=== PATIENT | female | born 1945 | race Asian ===

== ENCOUNTER 2018-10-15 01:01 | Inpatient (IN) | payer MEDICARE ==
[~2018-10-15] VITALS: Ht 160 cm; Wt 42.8 kg
[2018-10-15] MEDS ORDERED: ASPIRIN 81 MG TABLET CHEW ONE (01:25)
[2018-10-15] MEDS ORDERED: ASPIRIN 81 MG TABLET CHEW PO ONE (01:30)
[2018-10-15] MEDS ORDERED: DILTIAZEM 5 MG/ML, 5ML IV ONE (01:30)
[2018-10-15] MEDS ORDERED: PLEASE ENTER ALLERGIES MC SCH (01:30)
--- NOTE | 2018-10-15 01:41 | NUR ---
pt reports DIZZY PALPITATIONS N/V x 1 hour
[2018-10-15 01:45] LABS: BASOPHILS # (AUTO) 0.04 x10^3/uL (0-0.1); BASOPHILS % (AUTO) 0 % (0-1); EOSINOPHILS # (AUTO) 0.06 x10^3/uL (0-0.4); EOSINOPHILS % (AUTO) 0 % (1-7); LYMPHOCYTES # (AUTO) 1.98 x10^3/uL (1-3.4); LYMPHOCYTES % (AUTO) 13 % (22-44); MD NO; MEAN CORPUSCULAR HEMOGLOBIN 32.3 pg (27.0-34.8); MEAN CORPUSCULAR HGB CONC 33.5 g/dL (32.4-35.8); MEAN CORPUSCULAR VOLUME 96.2 fL (80-100); MEAN PLATELET VOLUME 7.7 fL (7.4-10.4); MONOCYTES # (AUTO) 0.85 x10^3/uL (0.2-0.8); MONOCYTES % (AUTO) 6 % (2-9); NEUTROPHILS # (AUTO) 12.54 x10^3/uL (1.8-6.8); NEUTROPHILS % (AUTO) 81 % (42-75); PLATELET COUNT 306 x10^3/uL (130-400); RED BLOOD COUNT 4.71 x10^6/uL (3.82-5.3); RED CELL DISTRIBUTION WIDTH 15.4 % (9.6-15.2)
[2018-10-15 01:54] LABS: INTERNATIONAL NORMALIZED RATIO 0.97 (0.93-1.1); PROTHROMBIN TIME 10.3 Seconds (9.6-11.5)
[2018-10-15 01:59] LABS: ALBUMIN 3.9 g/dL (3.4-5.0); ANION GAP 9 mmol/L (5-15); CALCIUM 9.1 mg/dL (8.5-10.1); CHLORIDE 109 mmol/L (98-107)
[2018-10-15 02:06] LABS: ALANINE AMINOTRANSFERASE 26 U/L (12-78); ALKALINE PHOSPHATASE 50 U/L (45-117); BILIRUBIN,TOTAL 0.5 mg/dL (0.2-1.0); CREATININE 1.05 mg/dL (0.55-1.02); TOTAL PROTEIN 6.7 g/dL (6.4-8.2); TROPONIN I < 0.015 ng/mL (0.000-0.045)
--- NOTE | 2018-10-15 02:15 | NUR ---
PT. C/O "MY HEART FEELS LIKE IT'S BOUNCING AROUND IN THERE". PT. DENIES CP, SOB. PT. C/O NAUSEA; WILL MEDICATE WITH ZOFRAN PER DR. LINDSAY. DR. LINDSAY AT TO DISCUSS POC WITH PT. PLAN FOR ADMIT WITH IRAIS JUNIOR. PT. IS ON ALL MONITORS. CALL LIGHT IN REACH. ALL SAFEYT MEASURES OBSERVED. Addendum: 10/15/18 at 0217 by MARICRUZ BREAK RN:
[2018-10-15] MEDS ORDERED: DILTIAZEM 125 MG in SODIUM CHLORIDE 0.9% 100 ML IV PRN (02:30)
[2018-10-15] MEDS ORDERED: ONDANSETRON 2MG/ML, 2ML IV ONE (02:30)
[2018-10-15] MEDS ORDERED: ALPR0.5T PO ×2 (02:44→12:49)
[2018-10-15] MEDS ORDERED: LEVO200V10 PO (02:45)
[2018-10-15] MEDS ORDERED: SIMV20OR PO (02:46)
[2018-10-15] MEDS ORDERED: SIMV10TA PO (02:46)
[2018-10-15] MEDS ORDERED: RISE5TAB PO (02:47)
--- NOTE | 2018-10-15 02:47 | NUR ---
AWAITING ADMIT AT THIS TIME
--- NOTE | 2018-10-15 03:45 | NUR ---
REPORT TO [facility]AL[facility] PT TO FLOOR WITH TECHS ON MOMITOR
[2018-10-15 03:58] VITALS: BP 97/59
[2018-10-15] MEDS ORDERED: BUDE9TAB2 PO (04:20)
[2018-10-15] MEDS ORDERED: FLUT1DIS3 INH (04:20)
[2018-10-15] MEDS ORDERED: DILTIAZEM 125 MG in SODIUM CHLORIDE 0.9% 100 ML IV SCH (05:00)
[2018-10-15] MEDS ORDERED: SODIUM CHLORIDE 0.9% 1,000 ML IV SCH (05:05)
[2018-10-15] MEDS ORDERED: ONDANSETRON 2MG/ML, 2ML IVPush PRN (05:30)
[2018-10-15] MEDS ORDERED: POTASSIUM CHLORIDE 20 MEQ TAB.ER.PRT PO ONE (05:30)
[2018-10-15] MEDS ORDERED: ONDANSETRON ODT 4 MG PO PRN (05:30)
[2018-10-15] MEDS ORDERED: BISACODYL 10 MG SUPP PR PRN (05:30)
[2018-10-15] MEDS ORDERED: ACTONEL MC SCH (05:30)
[2018-10-15] MEDS ORDERED: PROMETHAZINE 25 MG/ML, 1ML IM PRN (05:30)
[2018-10-15] MEDS ORDERED: LABETALOL 5MG/ML, 20ML IVPush PRN (05:30)
[2018-10-15] MEDS ORDERED: ACETAMINOPHEN 325 MG TABLET PO PRN (05:30)
[2018-10-15] MEDS ORDERED: morphine SULFATE 10 MG/ML, 1ML IVPush PRN (05:30)
[2018-10-15] MEDS ORDERED: POLYETHYLENE GLYCOL 17 GM PACKET PO PRN (05:30)
[2018-10-15] MEDS ORDERED: OXYcodone IR 5MG TABLET PO PRN (05:30)
[2018-10-15] MEDS ORDERED: RISEDRONATE SODIUM 5 MG PO SCH (05:30)
[2018-10-15] MEDS ORDERED: DOCUSATE 100 MG CAPSULE PO PRN (05:30)
[2018-10-15] MEDS ORDERED: hydrALAzine 20 MG/ML, 1ML IVPush PRN (05:30)
[2018-10-15] MEDS ORDERED: ALBUTEROL SULFATE 2.5 MG/3 ML NPPB SCH (06:00)
[2018-10-15] MEDS ORDERED: LEVOTHYROXINE 88 MCG TABLET PO SCH (06:00)
[2018-10-15] MEDS: NICOTINE 7 MG/24 HR PATCH.TD24 TD SCH (06:14)
[2018-10-15] MEDS: ASPIRIN 325 MG TABLET EC PO SCH (06:18)
[2018-10-15 07:06] VITALS: BP 103/67
[2018-10-15] MEDS: ENOXAPARIN 40 MG/0.4 ML SQ SCH (08:00)
[2018-10-15] MEDS: ALBUTEROL SULFATE 2.5 MG/3 ML NPPB SCH ×3 (08:51→21:30)
[2018-10-15] MEDS: BUDESONIDE 0.5 MG/2 ML INHA NPPB SCH ×2 (08:52→21:30)
[2018-10-15] MEDS ORDERED: TEMPLATE NON-FORMULARY MED. (Fluticasone/Salmeterol** (Advair 250-50 Diskus**) 1 PUFF) INH SCH (09:00)
[2018-10-15 12:34] VITALS: BP 109/69
[2018-10-15] MEDS ORDERED: CHOL4PAC2 PO (12:49)
[2018-10-15] MEDS ORDERED: LEVO25TA4 PO (12:49)
[2018-10-15] MEDS ORDERED: SIMV40TA3 PO (12:49)
[2018-10-15] MEDS ORDERED: SERT50TA28 PO (12:49)
[2018-10-15] MEDS ORDERED: GABA300C10 PO (12:49)
[2018-10-15] MEDS ORDERED: ALEN70TA3 PO (12:49)
[2018-10-15] MEDS: DILTIAZEM 30 MG TABLET PO SCH ×2 (13:28→20:07)
[2018-10-15] MEDS ORDERED: RISE150T3 PO (13:31)
[2018-10-15] MEDS: GABAPENTIN 100 MG CAPSULE PO SCH ×2 (15:00→23:32)
[2018-10-15 15:25] LABS: CULTURE INDICATED? YES; MICROSCOPIC INDICATED
[2018-10-15 16:14] VITALS: BP 98/43
[2018-10-15 19:02] VITALS: BP 119/76
[2018-10-15] MEDS: CHOLESTYRAMINE LIGHT 4GM PACKET PO SCH (20:07)
[2018-10-15] MEDS ORDERED: SIMVASTATIN 40 MG TABLET PO SCH (21:00)
[2018-10-15] MEDS ORDERED: SIMVASTATIN 10 MG TABLET PO SCH (21:00)
[2018-10-16 00:49] VITALS: BP 97/71
[2018-10-16] MEDS: DILTIAZEM 30 MG TABLET PO SCH ×2 (02:32→10:31)
[2018-10-16 02:33] VITALS: BP 112/67
[2018-10-16] MEDS: ALBUTEROL SULFATE 2.5 MG/3 ML NPPB SCH ×2 (02:58→07:25)
[2018-10-16 05:15] LABS: BASOPHILS # (AUTO) 0.05 x10^3/uL (0-0.1); BASOPHILS % (AUTO) 1 % (0-1); EOSINOPHILS # (AUTO) 0.19 x10^3/uL (0-0.4); EOSINOPHILS % (AUTO) 2 % (1-7); LYMPHOCYTES # (AUTO) 2.65 x10^3/uL (1-3.4); LYMPHOCYTES % (AUTO) 31 % (22-44); MD NO; MEAN CORPUSCULAR HEMOGLOBIN 32.6 pg (27.0-34.8); MEAN CORPUSCULAR HGB CONC 33.7 g/dL (32.4-35.8); MEAN CORPUSCULAR VOLUME 96.8 fL (80-100); MEAN PLATELET VOLUME 7.4 fL (7.4-10.4); MONOCYTES # (AUTO) 0.73 x10^3/uL (0.2-0.8); MONOCYTES % (AUTO) 9 % (2-9); NEUTROPHILS # (AUTO) 4.82 x10^3/uL (1.8-6.8); NEUTROPHILS % (AUTO) 57 % (42-75); PLATELET COUNT 269 x10^3/uL (130-400); RED CELL DISTRIBUTION WIDTH 15.5 % (9.6-15.2)
[2018-10-16 05:28] LABS: CHLORIDE 113 mmol/L (98-107)
[2018-10-16 05:48] LABS: ALANINE AMINOTRANSFERASE 21 U/L (12-78); ALBUMIN 3.3 g/dL (3.4-5.0); ALKALINE PHOSPHATASE 44 U/L (45-117); ANION GAP 7 mmol/L (5-15); BILIRUBIN,TOTAL 0.3 mg/dL (0.2-1.0); CALCIUM 8.9 mg/dL (8.5-10.1); CHOL/HDL RATIO 2.4; CHOLESTEROL, TOTAL 207 mg/dL (140-239); CREATININE 0.63 mg/dL (0.55-1.02); HDL CHOL % 43 % (28-40); HDL CHOLESTEROL (DIRECT) 88 mg/dL (40-60); LDL CHOLESTEROL,CALCULATED 96 mg/dL (54-169); LDL/HDL RATIO 1.1 (0.5-3.0); TOTAL PROTEIN 5.9 g/dL (6.4-8.2); TRIGLYCERIDES 113 mg/dL (50-200); VLDL CHOLESTEROL 23 mg/dL (0-25)
[2018-10-16] MEDS: NICOTINE 7 MG/24 HR PATCH.TD24 TD SCH (05:50)
[2018-10-16] MEDS: ASPIRIN 325 MG TABLET EC PO SCH (05:50)
[2018-10-16] MEDS ORDERED: LEVOTHYROXINE 25 MCG TABLET PO SCH ×2 (06:00→09:00)
[2018-10-16 07:12] VITALS: BP 128/78
[2018-10-16] MEDS: BUDESONIDE 0.5 MG/2 ML INHA NPPB SCH (07:25)
[2018-10-16] MEDS ORDERED: SERTRALINE 100MG TABLET PO SCH (09:00)
[2018-10-16] MEDS: ENOXAPARIN 40 MG/0.4 ML SQ SCH (10:30)
[2018-10-16] MEDS: GABAPENTIN 100 MG CAPSULE PO SCH (10:30)
[2018-10-16] MEDS: CHOLESTYRAMINE LIGHT 4GM PACKET PO SCH (10:34)
[2018-10-16] MEDS ORDERED: ASPI-650 PO (10:56)
[2018-10-16] MEDS ORDERED: DILT120C88 PO (10:56)
[2018-10-25] MEDS ORDERED: ALENDRONATE 70 MG TABLET PO SCH (06:30)
== END 2018-10-16 13:10 | disposition home or self-care (01) | DRG 308 ==
LOC: ED 02:15 → EDIP 02:23 → 5SO 03:52 → DCLOUNGE 10-16 12:48
PROVIDERS: ADMIT Internal Medicine; ATTEND Internal Medicine
DX: I48.0 Paroxysmal atrial fibrillation (principal); R65.11 Systemic inflammatory response syndrome (SIRS) of non-infectious origin with acute organ dysfunction; Z68.1 Body mass index [BMI] 19.9 or less, adult; E03.9 Hypothyroidism, unspecified; E78.5 Hyperlipidemia, unspecified; E87.6 Hypokalemia; R11.2 Nausea with vomiting, unspecified; F17.210 Nicotine dependence, cigarettes, uncomplicated; F41.9 Anxiety disorder, unspecified; J44.9 Chronic obstructive pulmonary disease, unspecified; M81.0 Age-related osteoporosis without current pathological fracture; Z90.710 Acquired absence of both cervix and uterus; Z90.49 Acquired absence of other specified parts of digestive tract
CPT/HCPCS: 36415; 71045; 80053; 80061; 81001; 83036; 83735; 83880; 84439; 84443; 84484; 85025; 85610; 87086; 93005; 93306; 94640; 96365; 96366; 96375; 99291; G0378; J7613; J7626